=== PATIENT | female | born 1990 | race Caucasian/White ===

== ENCOUNTER 2017-11-20 08:25 | Emergency (ER) | payer OTHER ==
[2017-11-20] MEDS: ONDANSETRON (ODT) 4 MG TAB ODT (09:25)
[2017-11-20 09:26] LABS: URINE BLOOD (Dip) POC Negative (NEGATIVE); URINE GLUCOSE (Dip) POC Negative (NEGATIVE); URINE KETONES (Dip) POC Negative (NEGATIVE); URINE LEUKOCYTE EST (Dip) POC Negative (NEGATIVE); URINE NITRITE (Dip) POC Negative (NEGATIVE); URINE TOTAL PROTEIN POC Negative (NEGATIVE)
== END 2017-11-20 10:04 | disposition left against medical advice (07) ==
LOC: FTE 08:25
DX: R10.84 Generalized abdominal pain (principal); R11.0 Nausea
CPT/HCPCS: 81003; 81025; 87591; 99283